=== PATIENT | male | born 1980 | race Two or more races ===

== ENCOUNTER 2018-12-23 12:07 | Emergency (ER) | payer OTHER ==
[~2018-12-23] VITALS: Ht 162.6 cm; Wt 72.6 kg
[2018-12-23 12:07] VITALS: BP 144/60
--- NOTE | 2018-12-23 13:05 | NUR ---
ED Nurse Note: Blood and urine specimen sent.
[2018-12-23 13:17] LABS: APPEARANCE,URINE CLEAR; BILIRUBIN, URINE NEGATIVE (NEGATIVE); COLOR,URINE PALE YELLOW; GLUCOSE, URINE (UA) NEGATIVE (NEGATIVE); KETONES,URINE NEGATIVE (NEGATIVE); LEUKOCYTE ESTERASE ,URINE NEGATIVE (NEGATIVE); NITRITE,URINE NEGATIVE (NEGATIVE); PH,URINE 6 (4.5-8.0); PROTEIN,URINE NEGATIVE (NEGATIVE); UROBILINOGEN,URINE NORMAL MG/DL (0.0-1.0)
[2018-12-23 13:21] LABS: BASOPHILS % (AUTO) 1.2 % (0.0-2.0); EOSINOPHILS % (AUTO) 1.2 % (0.0-3.0); HEMATOCRIT 47.9 % (42.0-52.0); HEMOGLOBIN 16.5 G/DL (14.2-18.0); LYMPHOCYTES % (AUTO) 20.4 % (20.0-45.0); MEAN CORPUSCULAR VOLUME 86 FL (80-99); MONOCYTES % (AUTO) 8.4 % (1.0-10.0); NEUTROPHILS % (AUTO) 68.7 % (45.0-75.0); PLATELET COUNT 372 K/UL (150-450); RED CELL DISTRIBUTION WIDTH 11.6 % (11.6-14.8); WHITE BLOOD COUNT 10.1 K/UL (4.8-10.8)
[2018-12-23 13:33] LABS: ANION GAP 11 mmol/L (5-15); BLOOD UREA NITROGEN 8 mg/dL (7-18); CALCIUM 9.8 MG/DL (8.5-10.1); CARBON DIOXIDE 26 MMOL/L (21-32); CHLORIDE 103 MMOL/L (98-107); CREATININE 0.8 MG/DL (0.55-1.30); POTASSIUM 3.5 MMOL/L (3.5-5.1); SODIUM 140 MMOL/L (136-145)
[2018-12-23 13:37] LABS: ALANINE AMINOTRANSFERASE 26 U/L (12-78); ALBUMIN 4.3 G/DL (3.4-5.0); ALBUMIN/GLOBULIN RATIO 1.1 (1.0-2.7); ALKALINE PHOSPHATASE 102 U/L (46-116); ASPARTATE AMINO TRANSFERASE 14 U/L (15-37); BILIRUBIN,TOTAL 0.5 MG/DL (0.2-1.0)
--- NOTE | 2018-12-23 14:03 | Emergency Room Report ---
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 Denies syncope, loss of consciousness, dizziness and blurred vision. He reports that the pain was instantaneous and did not have any radiation to jaw or left arm. Patient did not lose consciousness, denies history of high blood pressure, diabetes, renal disease. Patient also reports that he has a lot of anxiety. Has not been previously diagnosed with any medical condition. 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 Denies history of acid reflux, abdominal pain nausea vomiting. Patient denies any chest pain or shortness of breath at the emergency room today. Denies alcohol ingestion, smoking, drug use Allergies: Coded Allergies: No Known Allergies (Unverified , 12/23/18) Patient History Past Medical History: see triage record Past Surgical History: unable to obtain Pertinent Family History: none Immunizations: UTD Reviewed Nursing Documentation: PMH: Agreed; PSxH: Agreed Review of Systems All Other Systems: negative except mentioned in HPI Physical Exam Vital Signs Date Time Temp Pulse Resp B/P (MAP) Pulse Ox O2 Delivery O2 Flow Rate FiO2 12/23/18 12:07 98.4 88 16 99 Room Air 12/23/18 12:07 144/60 Sp02 EP Interpretation: reviewed, normal General Appearance: normal inspection, well appearing, no apparent distress Head: normocephalic, atraumatic Eyes: bilateral eye normal inspection, bilateral eye PERRL ENT: normal ENT inspection, normal pharynx Neck: normal inspection, supple Respiratory: normal inspection, chest non-tender, no rhonchi, no wheezing Cardiovascular #1: normal inspection, normal peripheral pulses, regular rate, rhythm, no edema, no gallop, no murmur, normal capillary refill Gastrointestinal: normal inspection, non tender, soft, no guarding Genitourinary: no CVA tenderness Musculoskeletal: normal inspection, back normal Neurologic: normal inspection, alert, oriented x3, responsive Psychiatric: normal inspection, judgement/insight normal, memory normal, no suicidal/homicidal ideation, no delusions Skin: normal inspection, normal color, no rash, warm/dry Lymphatic: normal inspection, no adenopathy Medical Decision Making PA Attestation All my diagnosis and treatment plans were reviewed ad discussed with my supervising physician Dr. 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 Denies syncope, loss of consciousness, dizziness and blurred vision. He reports that the pain was instantaneous and did not have any radiation to jaw or left arm. Patient did not lose consciousness, denies history of high blood pressure, diabetes, renal disease. Patient also reports that he has a lot of anxiety. Has not been previously diagnosed with any medical condition. 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 Denies history of acid reflux, abdominal pain nausea vomiting. Patient denies any chest pain or shortness of breath at the emergency room today. Denies alcohol ingestion, smoking, drug use Ddx considered but are not limited to: [place], Angina, COPD, GERD, exertional angina Vital signs: are WNL, pt. is afebrile H&PE are most consistent with exertional angina ORDERS: EKG, Chest XR, cardiac labs(troponin, CBC, CMP, lipid, troponin ED INTERVENTIONS: None required at this time. DISCHARGE: At this time pt. is stable for d/c to home. Will provide printed patient care instructions, and any necessary prescriptions. Care plan and follow up instructions have been discussed with the patient prior to discharge. Follow-up with her primary care provider avoid strenuous physical activity EKG Diagnostic Results Rate: normal Rhythm: NSR ST Segments: no acute changes Chest X-Ray Diagnostic Results Chest X-Ray Diagnostic Results : Chest X-Ray Ordered: Yes # of Views/Limited/Complete: 1 View Indication: Chest Pain EP Interpretation: Yes TRISTEN Xray: Interpretation reviewed, by supervising MD, and agrees with findings. Interpretation: no consolidation, no effusion Impression: No acute disease Electronically Signed by: matthew vazquez pa-C Last Vital Signs Date Time Temp Pulse Resp B/P (MAP) Pulse Ox O2 Delivery O2 Flow Rate FiO2 12/23/18 12:17 88 16 Room Air 12/23/18 12:07 98.4 144/60 99 Disposition: HOME, SELF-CARE Condition: Stable Scripts Acetaminophen* (TYLENOL EXTRA STRENGTH*) 500 Mg Tablet 500 MG ORAL Q8H PRN for Prn Headache/Temp > 101, #30 TAB 0 Refills Prov: Matthew Worthington 12/23/18 Patient Instructions: Angina Pectoris, [id number] Additional Instructions: Follow-up with a primary care provider for assessment of high blood pressure, chest pain 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 avoid Strenuous physical activity Matthew Worthington December 23, 2018 14:03
[2018-12-23] MEDS ORDERED: TYLENOL EXTRA500 MG ORAL (14:04)
--- NOTE | 2018-12-23 14:07 | NUR ---
ED Nurse Note: pt cleared to be d/c per ER provider, pt discharge and aftercare instruction provided w/ prescription, pt education done via discussion and handout, pt advised to follow up with pcp or return to ed if changes in condition, pt verbalized understanding and agrees with plan, vss, ambulatory w/ steady gait, left w/ all belongings, iv d/c and id band removed.
[2018-12-23 14:09] VITALS: BP 132/67
--- NOTE | 2018-12-24 11:51 | Diagnostic Imaging Report ---
Indication: Chest pain Comparison: None A single view chest radiograph was obtained. Findings: Cardiomediastinal appearance is within normal limits for age. The lungs are clear. Pulmonary vascularity is appropriate. The diaphragmatic contour is smooth and costophrenic angles are sharp. No pleural effusions are identified. The bones are unremarkable. Impression: No acute findings
== END 2018-12-23 15:29 | disposition home or self-care (01) ==
LOC: EDBD 12:07 → EMR 12:49
DX: I20.8 Other forms of angina pectoris (principal); R06.02 Shortness of breath; F41.9 Anxiety disorder, unspecified
CPT/HCPCS: 36415; 71045; 80053; 80307; 81003; 84484; 85025; 99283; G0480; 80329